=== PATIENT | male | born 1975 | race Caucasian/White ===

== ENCOUNTER 2022-09-04 22:55 | Emergency (ER) | payer BC, SELFPAY ==
[2022-09-04 22:59] VITALS: BP 132/85; PULSE 82; RESP 16; TEMP 37.1; O2SAT 97; BMI 26.0
--- NOTE | 2022-09-04 23:20 | ED_ITS ---
HPI - Extremity Injury (Lower) General Time Seen by Provider: 23:20 Date Seen: 09/04/22 Chief Complaint: Extremity Pain/Injury, Lower Stated Complaint: thinks he broke a bone in his right foot Time Seen by Provider: 09/04/22 23:20 Source: patient and RN notes reviewed Mode of arrival: ambulatory Limitations: no limitations History of Present Illness HPI Narrative: Patient is a 46 yo male coming in with pain at the base of his first right toe/foot area after it got caught in fence tonight. He was climbing over fence and his foot actually caught in the fence, getting twisted when he jumped down (didn't release). Has iced. Difficulty getting foot wear on due to pain and swelling. No numbness or tingling. Related Data Allergies Allergy/AdvReac Type Severity Reaction Status Date / Time No Known Drug Allergies Allergy Verified 09/04/22 23:02 Review of Systems Narrative: as per HPI Exam Const: Vital Signs, click to edit/add: Vital Signs - 24 hr 09/04/22 22:59 Temperature 98.8 F Pulse Rate [Right Pulse Oximeter] 82 Respiratory Rate 16 Blood Pressure [Ri ght Upper Arm] 132/85 Pulse Oximetry 97 Oxygen Delivery Me thod Room Air Has swelling and some bruising noted along the base of first toe in right foot, seems to be some developing bruising here as well. 1st toe has normal sensation, normal cap refill and is warm. Not really tender in the phalanx at all. Tenderness seems to be over the MTP joint at base of first toe. No open wounds noted. Documenting provider has reviewed patient's vital signs: yes Course Course Hospital Course: Will get patient ice pack, x-ray of this foot to rule out underlying fracture. Reevaluation(s) Reevaluation #1: Reviewed with patient that there is no evidence of fracture on the x-rays as read by the radiologist. He declines postoperative shoe for comfort. Time: 00:27 Vital Signs Vital signs: Initial Vital Signs Temperature 98.8 F 09/04/22 22:59 Temperature Source Temporal Artery Scan 09/04/22 22:59 Pulse Rate 82 09/04/22 22:59 Pulse Rhythm Regular 09/04/22 22:59 Pulse Strength 3+ Normal 09/04/22 22:59 Respiratory Rate 16 09/04/22 22:59 Blood Pressure 132/85 09/04/22 22:59 Blood Pressure Mean 100 09/04/22 22:59 Blood Pressure Position Sitting 09/04/22 22:59 Pulse Oximetry 97 09/04/22 22:59 Oxygen Delivery Method Room Air 09/04/22 22:59 Vital Signs Temperature 98.8 F 09/04/22 22:59 Pulse Rate 82 09/04/22 22:59 Respiratory Rate 16 09/04/22 22:59 Blood Pressure 132/85 09/04/22 22:59 Pulse Oximetry 97 09/04/22 22:59 Oxygen Delivery Method Room Air 09/04/22 22:59 Temperature 98.8 F 09/04/22 22:59 Pulse Rate 82 09/04/22 22:59 Respiratory Rate 16 09/04/22 22:59 Blood Pressure 132/85 09/04/22 22:59 Pulse Oximetry 97 09/04/22 22:59 Oxygen Delivery Method Room Air 09/04/22 22:59 MDM - Extremity Injury (Lower) Imaging Data XR right foot: Attestation: I have reviewed the pertinent imaging results. Radiologist's impression: Patient: MAK CAI Facility:?[facility] Patient ID:?[id number] Site Patient ID:?[id number]. Site :?[id number] Study:?XRay Extremity Right FOOT 3 VIEWS-09/04/2022 11:50:08 PM Ordering Physician:Phyllis Cabral Final Report: INDICATION: Right foot pain. TECHNIQUE: Right foot 3 views. Permanently recorded images are archived. COMPARISON: None. FINDINGS: No acute fracture or aggressive osseous lesion. Alignment is normal. The joint spaces are preserved. The soft tissues are unremarkable. IMPRESSION: No evidence of an acute bony abnormality. Dictated by Fawad Prather MD @ 09/04/2022 11:58:51 PM (Electronic Signature) Critical Care Time Critical Care Time Critical Care Time: No Discharge Plan Discharge Clinical Impression: Foot injury Patient Disposition: Home, Self-Care Condition: Stable Instructions: Foot Contusion (ED) Additional Instructions: Ice, elevate for next few days as much as you are able to to decrease pain and swelling. Use firm soled shoe for comfort with walking. Tylenol/ibuprofen per bottle directions as needed for pain control. If you are not improving over the next 1-2 weeks, pain is worsening at any point, do recommend seeking re- evaluation and re-imaging. Activity Level: Activity as Tolerated Follow Up/Referrals: Tin Avery MD [Primary Care Provider] - Stand Alone Forms: [employer] Info Instructions
--- NOTE | 2022-09-04 23:23 | CRLHL7_ITS ---
For Patients: As a result of the Century Cures Act, medical imaging exams and procedure reports are released immediately into your electronic medical record. You may view this report before your referring provider. If you have questions, please contact your health care provider. INDICATION: Right foot pain. TECHNIQUE: Right foot 3 views. Permanently recorded images are archived. COMPARISON: None. FINDINGS: No acute fracture or aggressive osseous lesion. Alignment is normal. The joint spaces are preserved. The soft tissues are unremarkable. IMPRESSION: No evidence of an acute bony abnormality. Dictated by Fawad Prather MD @ 09/04/2022 11:58:51 PM (Electronically Signed)
== END 2022-09-05 00:39 | disposition home or self-care (01) ==
PROVIDERS: Emergency Provider Family Medicine
DX: S99.921A Unspecified injury of right foot, initial encounter (principal); X50.1XXA Overexertion from prolonged static or awkward postures, initial encounter
CPT/HCPCS: 73630; 99283